=== PATIENT | female | born 2005 | race Caucasian/White ===

== ENCOUNTER 2024-08-14 20:53 | Emergency (ER) | payer SELFPAY ==
[2024-08-14 20:56] VITALS: BP 146/95
[2024-08-14 21:12] LABS: % Basophils 0.8 % (0-2); % Eosinophils 2.4 % (0-6); % Immature Granulocytes 0.2 % (0-0.5); % Lymphocytes 20.9 % (20.5-51.1); % Monocytes 5.4 % (1.7-9.3); % Neutrophils 70.3 % (42.2-75.2); Absolute Basophils 0.1 10^3/uL (0-0.2); Absolute Eosinophils 0.3 10^3/uL (0-0.7); Absolute Lymphocytes 2.4 10^3/uL (1.2-3.4); Absolute Monocytes 0.6 10^3/uL (0.1-0.6); Hematocrit 37.6 % (37.0-47.0); Hemoglobin 12.3 g/dL (12.0-16.0); Mean Corp Hgb Conc. 32.7 g/dL (33.0-37.0); Mean Corpuscular Hgb 26.9 pg (27.0-31.0); Mean Corpuscular Volume 82.1 fL (81.0-99.0); Mean Platelet Volume 8.7 fL (7.4-10.4); Nucleated Red Blood Cells % 0 %; Platelet Count 411 10^3/uL (130-400); Red Blood Cell Count 4.58 10^6/uL (4.20-5.40); Red Cell Dist. Width 13.8 % (11.5-14.5); White Blood Cell Count 11.4 10^3/uL (4.8-10.8)
[2024-08-14 21:29] LABS: ALT (SGPT) 16 U/L (0-35); AST (SGOT) 20 U/L (14-36); Albumin 4.7 g/dl (3.5-5.0); Alkaline Phosphatase 109 U/L (38-126); Blood Urea Nitrogen 13 mg/dl (7-17); Calcium 9.9 mg/dl (8.4-10.2); Carbon Dioxide 24 mmol/L (22-30); Chloride 106 mmol/L (98-107); Glucose 103 mg/dl (70-99); Potassium 4.4 mmol/L (3.5-5.1); Sodium 141 mmol/L (135-145); Total Bilirubin 0.4 mg/dl (0.2-1.3); Total Protein 7.5 g/dl (6.3-8.2); eGFR > 60.00
--- NOTE | 2024-08-15 00:21 | ED.SKININJ ---
HPI-Injury
General
Chief Complaint: Bite
Source: patient
Exam Limitations: none
Time Seen by Provider: 08/14/24 23:48
Nursing documentation reviewed up to this point in time: agreed with
History of Present Illness-Injury
Initial Injury comments:
This is a 18-year-old [id number] female with no significant past medical history who states 2 days ago while at work at a [employer] she was inadvertently bitten right distal long digit by a dog. The dog is up-to-date with
immunizations.
She presented to urgent care that same day, 2 days ago, recommended supportive measures and was given a Tdap booster.
She complains of increased pain and swelling and return to urgent care today noted to have redness and swelling and drainage from 2 puncture wounds distal aspect of the right long digit. She was started on Augmentin and has had 1 dose thus far.
She also took a dose of ibuprofen 800 mg just prior to arrival.
She denies fever nor chills. Concern for persistent redness and swelling right long digit.
Past History
Past History
ED Past Medical History: None
ED Past Surgical History: Orthopedic
Social History
Tobacco: Non-smoker
Personal: Single
Living: with family
Employment: Employed
Family History
Family History: Other (Noncontributory)
Skin Exam
Bite
Right Lower Posterior Distal Third Finger:
Type: animal
Skin has: puncture wounds (Puncture wounds x2, medial and lateral dorsal aspect of the digit, distal to the DIP joint.)
Surrounding area around bite has: area of erythema/swelling and draining purulent fluid (scant purulent drainage)
Distal skin color and temperature: normal-warm & good color
Normal distal neurovascular exam: Yes
Phy Exam
Physical Exam
Physical Exam:
PHYSICAL EXAMINATION:
General: 18-year-old female appears her stated age, awake and alert, pleasant, appears in no acute distress. Afebrile.
HEART: Regular rate and rhythm. No murmur no rub.
LUNGS: Clear to auscultation. Respirations are easy and nonlabored.
Neuro: alert and oriented. no focal neurological deficits
Psychiatric: well kept. interactive and cooperative
Musculoskeletal: [As above. Peripheral pulses are full and equal bilaterally. Mildly limited flexion DIP joint right long digit related to pain. There is no lymphangitis. No circumferential erythema nor swelling. No nail
or nailbed involvement.]
Course
Orders/Labs/Results
Orders:
Orders
08/14/24 21:00
Complete Blood Count/With Diff Urgent
Comprehensive Metabolic Panel Urgent
08/15/24 00:02
Finger(s)/Thumb 2 View Rt [CR Finger(s)/thumb Min 2 Vw Rt] Urgent
Comment:
Reason For Exam: right long digit
08/15/24 02:11
Ampicillin/Sulbactam 3 G [Unasyn] 3 gm 0.9% Sodium Chloride 100 ml [Nss] 100 ml IV NOW
Ketorolac [Toradol] 30 mg IV NOW STA
08/15/24 02:17
Ampicillin/Sulbactam 3 G [Unasyn] 3 gm 0.9% Sodium Chloride 100 ml [Nss] 100 ml IV NOW
Abnormal Lab Results
08/14/24
21:00
WBC 11.4 H 10^3/uL
(4.8-10.8)
MCH 26.9 L pg
(27.0-31.0)
MCHC 32.7 L g/dL
(33.0-37.0)
Plt Count 411 H 10^3/uL
(130-400)
Absolute Neuts (auto) 8.0 H 10^3/uL
(1.4-6.5)
Glucose 103 H mg/dl
(70-99)
08/14/24 21:00
08/14/24 21:00
Vital Signs
Initial and Last Documented VS:
Initial Vital Signs
Temp Pulse Resp BP Pulse Ox
98.7 F 100 16 146/95 98
08/14/24 20:56 08/14/24 20:56 08/14/24 20:56 08/14/24 20:56 08/14/24 20:56
Last Documented Vital Signs
Temp Pulse Resp BP Pulse Ox
98.7 F 100 16 146/95 99
08/14/24 20:56 08/14/24 20:56 08/14/24 20:56 08/14/24 20:56 08/14/24 23:52
MDM/Problems Addressed
Differential Diagnosis Includes:
Patient presents with dog bite wound distal right long digit that appears locally infected. No evidence of systemic infection. No evidence of tenosynovitis.
Tdap given at urgent care 2 days ago.
Augmentin started today, thus far has had 1 dose.
Labs show mildly elevated white blood cell count of 11.4, otherwise unremarkable. Normal differential.
Will check x-ray to assess for potential foreign body, subcutaneous gas.
Will plan for one-time dose of IV Unasyn and will give Toradol for pain.
If x-ray unremarkable will recommend continuing Augmentin twice daily.
*Radiology
Radiology exam reviewed: preliminary read by ED provider (Mild soft tissue swelling distal digit, no fracture nor foreign body, no subcutaneous air.)
*Pulse Oximetry
Patient hypoxic: no
*Critical Care Note
Total Time (30-74mins, 75-104mins- exclusive of procedures): Not Applicable
ED Attending Note
-
Portions of this chart may have been created with voice recognition software.� Occasional wrong word or��sound alike� substitutions may have occurred due to the inherent limitations of voice recognition software.
Discharge Plan
Departure
Patient Disposition: Home (Routine Discharge)
Date of Disposition: 08/15/24
Time of Disposition: 02:43
Patient with high blood pressure during this ER visit?: No
Condition: Good
Discharge Problem:
Infection of wound due to dog bite
Instructions: Animal bites - ED discharge instructions
Activity Restrictions/Additional Instructions:
Continue Augmentin twice daily as prescribed.
Continue ibuprofen every 6-8 hours as needed for pain.
Apply warm compresses to finger or alternatively soak in warm salt water 4 times daily.
Follow-up with urgent care next week as already planned.
Interventions
Interventions:
*Risk Screen - Suicide Last Done: 08/14/24 20:58
*General Assessment Last Done: 08/14/24 23:52
*Neglect/Abuse Screening Last Done: 08/14/24 20:58
*ED- Fall Risk Assessment Last Done: 08/14/24 23:52
*Nursing Disposition Last Done: 08/15/24 02:57
ED- Cardiac Assessment Last Done: 08/14/24 23:52
ED- Pulmonary Assessment Last Done: 08/14/24 23:52
ED-Skin Assessment Last Done: 08/14/24 23:52
Discharge Date and Time
Print Language: [place]
[2024-08-15] MEDS: TORADOL 30 MG IV (02:15)
[2024-08-15] MEDS: UNASYN IV (02:15)
== END 2024-08-15 02:57 | disposition home or self-care (01) ==
LOC: EMR 20:53
PROVIDERS: Emergency Medicine; EMERGENCY PHYSICIAN Emergency Medicine
DX: S61.232A Puncture wound without foreign body of right middle finger without damage to nail, initial encounter (principal); L08.9 Local infection of the skin and subcutaneous tissue, unspecified; W54.0XXA Bitten by dog, initial encounter; Y99.0 Civilian activity done for income or pay
CPT/HCPCS: 96365; 96375; 99284; 73140; 80053; 85025